=== PATIENT | female | born 1990 | race Two or more races ===

== ENCOUNTER 2020-04-20 21:49 | Inpatient (IN) | payer MEDICAID ==
[~2020-04-20] VITALS: Ht 167.6 cm; Wt 92.7 kg
[2020-04-20] MEDS ORDERED: ONDANSETRON HCL 4 MG/2 ML VIAL IV ONE (22:45)
[2020-04-20] MEDS ORDERED: MORPHINE SULFATE 4 MG/ML SYR/VIAL IV ONE (22:45)
[2020-04-20] MEDS ORDERED: SODIUM CHLORIDE 0.9% 1,000 ML IV ONE (22:45)
[2020-04-20 22:51] LABS: Basophils # (auto) 0.1 10 ^3/uL (0-0.2); Basophils % (auto) 0.5 % (0.0-2.0); Eosinophils # (auto) 0 10 ^3/uL (0-0.8); Eosinophils % (auto) 0.4 % (0.0-7.0); Hematocrit 38.4 % (36.0-46.0); Hemoglobin 13.4 g/dL (12.2-16.2); Lymphocytes # (auto) 2.1 10 ^3/uL (0.4-5.4); Lymphocytes % (auto) 15.2 % (10.0-50.0); Mean Corpuscular Hgb Conc. 34.8 g/dL (32.0-36.0); Mean Corpuscular Volume 86.3 fL (80.0-100.0); Monocytes # (auto) 0.8 10 ^3/uL (0-1.3); Monocytes % (auto) 5.5 % (0.0-12.0); Neutrophils # (auto) 10.8 10 ^3/uL (1.6-8.6); Neutrophils % (auto) 78.4 % (37.0-80.0); Nucleated Red Blood Cells % 0.1 %; Platelet Count (auto) 280 10^3/uL (140-450); Red Blood Cells 4.45 10^6/uL (4.0-5.20); Red Cell Distribution Width 12.6 % (11.8-14.3); White Blood Cell 13.8 10^3/uL (4.4-10.8)
[2020-04-20 23:20] LABS: Albumin 4.2 g/dL (3.4-5.0); Calcium 9.1 mg/dL (8.5-10.1); Potassium 3.3 mmol/L (3.5-5.1)
[2020-04-20 23:23] LABS: BUN/Creatinine Ratio 17.9; Bilirubin, Total 0.4 mg/dL (0.2-1.0); Total Protein 7.8 g/dL (6.4-8.2)
[2020-04-20 23:56] LABS: Urine Bacteria FEW /hpf (None Seen); Urine Blood 3+ /uL (Negative); Urine Mucus FEW (None Seen); Urine Specific Gravity 1.015 (1.001-1.035); Urine WBC 6 /hpf (0 - 5)
[2020-04-21] MEDS ORDERED: TEMAZEPAM 15 MG CAP PO PRN (02:00)
[2020-04-21] MEDS ORDERED: ACETAMINOPHEN 325 MG TAB PO PRN (02:00)
[2020-04-21] MEDS ORDERED: ALBUTEROL SULF 2.5 MG/0.5ML(0.5%) NEB SOLN NEB PRN (02:00)
[2020-04-21] MEDS ORDERED: SODIUM CHLORIDE 0.9% 1,000 ML IV SCH (02:00)
[2020-04-21] MEDS ORDERED: MORPHINE SULF INJ 2 MG/ML SYRINGE 1ML IV PRN (02:00)
[2020-04-21] MEDS ORDERED: IPRATROPIUM BROM 0.5 MG/2.5ML INH SOL NEB PRN (02:00)
[2020-04-21] MEDS ORDERED: DOCUSATE SOD 100 MG CAP PO PRN (02:00)
[2020-04-21] MEDS ORDERED: ONDANSETRON HCL 4 MG/2 ML VIAL IV PRN (02:00)
--- NOTE | 2020-04-21 02:48 | NUR ---
ADMISSION NOTE PT ADMITTED TO ROOM 292-A IN STABLE COND , M/S STATUS. PT ORIENTED TO ROOM AND PROCEDURES AND POC DISCUSSED WITH PT. PT VERBALIZES UNDERSTANDING. BED IS LOW, WHEELS ARE LOCKED , AND CALL LIGHT IS WITH IN REACH.
[2020-04-21] MEDS: LORazepam 0.5 MG TAB PO PRN ×3 (03:13→22:43)
[2020-04-21] MEDS ORDERED: ALPR0.5T PO (05:26)
[2020-04-21] MEDS ORDERED: OMEP20TA PO (05:26)
[2020-04-21] MEDS ORDERED: MELA3TAB27 PO (05:45)
[2020-04-21 06:00] VITALS: BP 117/59
[2020-04-21 06:19] LABS: Basophils # (auto) 0 10 ^3/uL (0-0.2); Basophils % (auto) 0.4 % (0.0-2.0); Eosinophils # (auto) 0 10 ^3/uL (0-0.8); Eosinophils % (auto) 0.3 % (0.0-7.0); Hematocrit 36.8 % (36.0-46.0); Hemoglobin 12.8 g/dL (12.2-16.2); Lymphocytes # (auto) 2.2 10 ^3/uL (0.4-5.4); Lymphocytes % (auto) 20.7 % (10.0-50.0); Mean Corpuscular Hemoglobin 30.5 pg (28.0-32.0); Mean Corpuscular Hgb Conc. 34.8 g/dL (32.0-36.0); Mean Corpuscular Volume 87.6 fL (80.0-100.0); Monocytes # (auto) 0.5 10 ^3/uL (0-1.3); Monocytes % (auto) 4.8 % (0.0-12.0); Neutrophils # (auto) 7.8 10 ^3/uL (1.6-8.6); Neutrophils % (auto) 73.8 % (37.0-80.0); Nucleated Red Blood Cells % 0.1 %; Platelet Count (auto) 266 10^3/uL (140-450); Red Cell Distribution Width 12.7 % (11.8-14.3); White Blood Cell 10.6 10^3/uL (4.4-10.8)
[2020-04-21 06:39] LABS: Calcium 8.7 mg/dL (8.5-10.1); Potassium 3.9 mmol/L (3.5-5.1)
[2020-04-21 06:43] LABS: BUN/Creatinine Ratio 16.4
[2020-04-21 09:00] VITALS: BP 110/51
--- NOTE | 2020-04-21 09:05 | NUR ---
OPENING SHIFT NOTE Assumed care of patient from assembler 1st shift RN. Patient is alert and oriented x4, no signs of distress noted, patient complaining of left sided flank pain 5/10. Patient was offered hot compress and pain medication as ordered, patient refused. She was updated on the plan of care and verbalized understanding. Bed is locked, in the lowest position, side rails up x2 and call light is in reach. Patient was encouraged to call for assistance as needed.
[2020-04-21] MEDS: levoFLOXacin 500MG 100 ML IV SCH (10:15)
--- NOTE | 2020-04-21 10:17 | NUR ---
Respiratory note: ASSESSED PT FOR PRN TX , PT WAS AWAKE AND ALERT, NO RESP DISTRESS NOTED. HR 54, RR 16, SPO2 98% ON ROOM AIR. NO INDICATION FOR TX AT THIS TIME. RN AT BEDSIDE. PT KNOWS TO HAVE RT PAGED IF TX IS NEEDED.
[2020-04-21 10:27] VITALS: BP 116/56
--- NOTE | 2020-04-21 12:40 | NUR ---
CALL FROM SUSANNA updated on the patient status. New orders received for mannitol 12.5g ivpb infused over one hour, then 1L bolus, then ns at 100ml/hr, and flomax 0.4mg po daily. Orders readback and verified. New order also received for regular diet.
[2020-04-21] MEDS ORDERED: MANNITOL FTV 25% 12.5 GM/50 ML 50 ML IV ONE (12:45)
[2020-04-21] MEDS: SODIUM CHLORIDE 0.9% 1,000 ML IV SCH (12:45)
[2020-04-21] MEDS ORDERED: SODIUM CHLORIDE 0.9% 1,000 ML IV ONE (14:00)
[2020-04-21] MEDS: HYDROcodone-ACET 5/325MG TAB PO PRN ×2 (15:58→20:46)
--- NOTE | 2020-04-21 15:59 | NUR ---
VIRI AT BEDSIDE Updated on the patient status. Plan of care was discussed with the patient and she verbalized understanding. No new orders received.
[2020-04-21 16:40] VITALS: BP 115/69
--- NOTE | 2020-04-21 17:26 | NUR ---
Urine sample sent
[2020-04-21] MEDS: TAMSULOSIN HYDROCHLORIDE 0.4 MG CAP PO SCH (17:46)
--- NOTE | 2020-04-21 19:00 | NUR ---
Opening Shift Note Assumed care of patient, awake and alert. No S/S of distress/SOB or pain. Insructed on POC and to callfor assist PRN, will continue to monitor for changes Q1hr and PRN.
[2020-04-21 20:00] VITALS: BP 117/66
[2020-04-21 22:00] VITALS: BP 117/66
[2020-04-22] MEDS: SODIUM CHLORIDE 0.9% 1,000 ML IV SCH ×4 (03:38→21:24)
[2020-04-22 06:01] LABS: Basophils # (auto) 0 10 ^3/uL (0-0.2); Basophils % (auto) 0.5 % (0.0-2.0); Eosinophils # (auto) 0.2 10 ^3/uL (0-0.8); Eosinophils % (auto) 2.8 % (0.0-7.0); Hematocrit 37.7 % (36.0-46.0); Hemoglobin 12.9 g/dL (12.2-16.2); Lymphocytes # (auto) 3.1 10 ^3/uL (0.4-5.4); Lymphocytes % (auto) 42.9 % (10.0-50.0); Mean Corpuscular Hemoglobin 30.3 pg (28.0-32.0); Mean Corpuscular Hgb Conc. 34.2 g/dL (32.0-36.0); Mean Corpuscular Volume 88.7 fL (80.0-100.0); Monocytes # (auto) 0.4 10 ^3/uL (0-1.3); Monocytes % (auto) 5.8 % (0.0-12.0); Neutrophils # (auto) 3.5 10 ^3/uL (1.6-8.6); Nucleated Red Blood Cells % 0.1 %; Platelet Count (auto) 244 10^3/uL (140-450); Red Blood Cells 4.24 10^6/uL (4.0-5.20); Red Cell Distribution Width 12.9 % (11.8-14.3); White Blood Cell 7.3 10^3/uL (4.4-10.8)
[2020-04-22 06:17] VITALS: BP 114/74
[2020-04-22 06:22] LABS: INR 1.01 (0.9-1.15)
[2020-04-22 06:24] LABS: Calcium 8.1 mg/dL (8.5-10.1); Potassium 3.9 mmol/L (3.5-5.1)
[2020-04-22 06:28] LABS: BUN/Creatinine Ratio 18.1
[2020-04-22 09:00] VITALS: BP 117/72
--- NOTE | 2020-04-22 09:27 | NUR ---
PT SPO2 98%, HEART RATE 76, RESPIRATORY RATE 16, BREATH SOUNDS ARE CLEAR T/O. PT ON ROOM AIR. NO PRN TX INDICATED. Respiratory note:
[2020-04-22] MEDS: levoFLOXacin 500MG 100 ML IV SCH (09:47)
[2020-04-22] MEDS: HYDROcodone-ACET 5/325MG TAB PO PRN ×2 (09:48→21:23)
--- NOTE | 2020-04-22 11:46 | NUR ---
EDUCATED PATIENT TO CONTINUE TO DRINK FLUIDS AND ENCOURAGED PATIENT TO AMBULATE PATIENT VERBALIZED UNDERSTANDING
[2020-04-22 13:00] VITALS: BP 140/82
[2020-04-22] MEDS: LORazepam 0.5 MG TAB PO PRN (13:23)
[2020-04-22 17:00] VITALS: BP 108/68
[2020-04-22] MEDS: TAMSULOSIN HYDROCHLORIDE 0.4 MG CAP PO SCH (18:36)
--- NOTE | 2020-04-22 19:20 | NUR ---
Respiratory note: PT ASSESSED FOR PRN MED NEB TX. HR 75, RR 16, SPO2 97% ON RA. NO S/S OF ANY RESPIRATORY DISTRESS NOTED. ADVISED PT TO CALL IF TX IS NEEDED.
--- NOTE | 2020-04-22 19:40 | NUR ---
Opening shift note Assumed care of patient from day shift RN. Patient in the bathroom at this time. Returned to find the patient A&Ox4, respirations even and non-labored with no s/s of distress at this time. Discussed POC with patient who verbalized understanding. Bed in lowest locked position with 2 side rails up, call light within reach. Will continue to monitor Q1hr and PRN
[2020-04-22 22:00] VITALS: BP 119/75
--- NOTE | 2020-04-23 01:00 | NUR ---
Patient continuing to strain urine Observed strainer and there are no visible signs of passed stones. Will continue to monitor.
[2020-04-23] MEDS: HYDROcodone-ACET 5/325MG TAB PO PRN (02:55)
[2020-04-23 05:00] VITALS: BP 106/68
[2020-04-23 06:45] LABS: Basophils # (auto) 0 10 ^3/uL (0-0.2); Basophils % (auto) 0.5 % (0.0-2.0); Eosinophils # (auto) 0.2 10 ^3/uL (0-0.8); Eosinophils % (auto) 2.6 % (0.0-7.0); Hematocrit 36.7 % (36.0-46.0); Hemoglobin 12.6 g/dL (12.2-16.2); Lymphocytes % (auto) 40.9 % (10.0-50.0); Mean Corpuscular Hemoglobin 30.4 pg (28.0-32.0); Mean Corpuscular Hgb Conc. 34.3 g/dL (32.0-36.0); Mean Corpuscular Volume 88.5 fL (80.0-100.0); Monocytes # (auto) 0.4 10 ^3/uL (0-1.3); Monocytes % (auto) 5.3 % (0.0-12.0); Neutrophils # (auto) 3.8 10 ^3/uL (1.6-8.6); Neutrophils % (auto) 50.7 % (37.0-80.0); Nucleated Red Blood Cells % 0.1 %; Platelet Count (auto) 237 10^3/uL (140-450); Red Blood Cells 4.15 10^6/uL (4.0-5.20); Red Cell Distribution Width 12.6 % (11.8-14.3); White Blood Cell 7.4 10^3/uL (4.4-10.8)
[2020-04-23 07:04] LABS: BUN/Creatinine Ratio 17.2; Calcium 8.3 mg/dL (8.5-10.1)
--- NOTE | 2020-04-23 07:39 | NUR ---
Closing shift note Patient resting without s/s of distress or labored breathing. Endorsed care to day shift RN
--- NOTE | 2020-04-23 08:00 | NUR ---
Respiratory note: PRN MED NEB TX NOT INDICATED AT THIS TIME. HR 61, RR 14, SPO2 96% ON RA, BS CLEAR. PRN MED NEB TX NOT INDICATED AT THIS TIME. PT INFORMED TO CALL IF FEELING SOB OR WHEEZING.
[2020-04-23 08:31] VITALS: BP 119/70
[2020-04-23] MEDS: SODIUM CHLORIDE 0.9% 1,000 ML IV SCH (09:13)
[2020-04-23] MEDS: levoFLOXacin 500MG 100 ML IV SCH (09:21)
[2020-04-23 12:29] VITALS: BP 111/66
[2020-04-23] MEDS ORDERED: TAM04C PO (14:02)
[2020-04-23] MEDS ORDERED: IBUP400T21 PO (14:02)
--- NOTE | 2020-04-23 16:36 | NUR ---
DISCHARGE INSTRUCTIONS GIVEN TO PT. VERBALIZED UNDERSTANDING. ALL APPROPRIATE PAPERWORK SIGNED.IV REMOVED. OFFERED TO MAKE CLINIC APPT FOR PT. PT DECLINED AT THIS TIME. PT STATED, " I WANT TO GO HOME AND REST FOR A DAY. THEN I WILL BE OKAY, AND I CAN MAKE SOME PHONE CALLS AND MAKE AN APPT. "
--- NOTE | 2020-04-23 16:57 | NUR ---
PATIENT DISCHARGED HOME.
== END 2020-04-23 17:00 | disposition home or self-care (01) | DRG 465 ==
LOC: ER 21:49 → EDBD 21:49 → OVERFLOW 21:50 → WEST WING 04-21 03:01
PROVIDERS: ADMIT Hospitalist; ATTEND Internal Medicine Nephrology
DX: N13.2 Hydronephrosis with renal and ureteral calculous obstruction (principal); E66.9 Obesity, unspecified; E87.6 Hypokalemia; J45.909 Unspecified asthma, uncomplicated; K21.9 Gastro-esophageal reflux disease without esophagitis; K44.9 Diaphragmatic hernia without obstruction or gangrene; Z80.3 Family history of malignant neoplasm of breast; Z83.3 Family history of diabetes mellitus; Z88.1 Allergy status to other antibiotic agents; Z68.26 Body mass index [BMI] 26.0-26.9, adult
CPT/HCPCS: 36415; 74176; 80048; 80053; 80061; 81001; 82150; 83690; 84443; 84702; 85025; 85610; 87086; G0378; J1956; J2405

== ENCOUNTER 2021-03-24 14:29 | Inpatient (IN) | payer BC, MEDICAID ==
[~2021-03-24] VITALS: Ht 162.6 cm; Wt 96.8 kg
[~2021-03-24 14:29] MED LIST: ALPR0.5T PO; IBUP400T22 PO; MELA3TAB27 PO; OMEP20TA PO; TAM04C PO
[2021-03-24] MEDS ORDERED: DexAMETHasone SOD PHOS 10MG/1ML VIAL INJ IV ONE ×2 (15:00→22:45)
[2021-03-24] MEDS ORDERED: ASCORBIC ACID 500 MG TAB PO ONE (15:00)
[2021-03-24] MEDS ORDERED: ZINC SULFATE 220mg CAP or TAB PO ONE (15:00)
[2021-03-24] MEDS ORDERED: AZITHROMYCIN 500MG/ 250ML 250 ML IV ONE (15:00)
[2021-03-24] MEDS ORDERED: cefTRIAXone 1GM/50ML D5W 50 ML IV ONE (15:00)
[2021-03-24 20:16] LABS: Basophils # (auto) 0.1 10 ^3/uL (0-0.2); Basophils % (auto) 0.7 % (0.0-2.0); Eosinophils # (auto) 0 10 ^3/uL (0-0.8); Hematocrit 35.8 % (36.0-46.0); Hemoglobin 12.4 g/dL (12.2-16.2); Lymphocytes # (auto) 1.1 10 ^3/uL (0.4-5.4); Lymphocytes % (auto) 13.8 % (10.0-50.0); Mean Corpuscular Hemoglobin 30.2 pg (28.0-32.0); Mean Corpuscular Hgb Conc. 34.7 g/dL (32.0-36.0); Mean Corpuscular Volume 86.9 fL (80.0-100.0); Monocytes # (auto) 0.4 10 ^3/uL (0-1.3); Monocytes % (auto) 5.5 % (0.0-12.0); Neutrophils # (auto) 6.1 10 ^3/uL (1.6-8.6); Nucleated Red Blood Cells % 0.2 %; Red Blood Cells 4.12 10^6/uL (4.0-5.20); White Blood Cell 7.6 10^3/uL (4.4-10.8)
[2021-03-24 20:37] LABS: Chloride 106 mmol/L (98-107); Potassium 3.6 mmol/L (3.5-5.1); Sodium 137 mmol/L (136-145)
[2021-03-24 20:49] LABS: Alanine Aminotransferase 67 U/L (13-56); Alkaline Phosphatase 56 U/L (45-117); Anion Gap 3 (5-15); Aspartate Aminotransferase 63 U/L (15-37); BUN/Creatinine Ratio 8.6; Bilirubin, Total 0.4 mg/dL (0.2-1.0); Blood Urea Nitrogen 6 mg/dL (7-18); Calcium 7.9 mg/dL (8.5-10.1); Carbon Dioxide 28 mmol/L (21-32); GFR African American 127 mL/min; GFR Non-African American 105 mL/min; Glucose 96 mg/dL (74-106); Total Protein 7.5 g/dL (6.4-8.2)
[2021-03-24 20:51] LABS: CRP High Sensitivity > 19.0 mg/dL (< 0.3)
[2021-03-24] MEDS ORDERED: ONDANSETRON HCL 4 MG/2 ML VIAL IV PRN (22:45)
[2021-03-24] MEDS ORDERED: MORPHINE SULFATE INJECTION 2 MG/ML SYRG IV PRN (22:45)
[2021-03-24] MEDS ORDERED: NITROGLYCERIN 0.4 MG SL TAB SL PRN (22:45)
[2021-03-24] MEDS ORDERED: ALBUTEROL SULF 2.5 MG/0.5ML(0.5%) NEB SOLN NEB PRN (22:45)
[2021-03-24] MEDS: PIPERACILLIN-TAZOB 3.375GM 100 ML IV SCH (23:44)
[2021-03-25 02:56] VITALS: BP 115/68
[2021-03-25] MEDS: PIPERACILLIN-TAZOB 3.375GM 100 ML IV SCH ×3 (06:13→18:22)
[2021-03-25 06:59] LABS: Urine Bacteria FEW /hpf (None Seen); Urine Blood 3+ /uL (Negative); Urine Mucus FEW (None Seen); Urine Specific Gravity 1.024 (1.001-1.035); Urine WBC 68 /hpf (0 - 5)
[2021-03-25] MEDS: DexAMETHasone SOD PHOS 10MG/1ML VIAL INJ IV SCH (09:40)
[2021-03-25] MEDS ORDERED: ALBUTEROL SULF HFA 90MCG INH 200DOSE IN PRN (12:45)
[2021-03-25] MEDS ORDERED: ALBUTEROL SULF HFA 90MCG INH 200DOSE IN SCH (15:00)
[2021-03-25] MEDS: ASCORBIC ACID 500 MG TAB PO SCH ×2 (15:24→22:54)
[2021-03-25] MEDS: ZINC SULFATE 220mg CAP or TAB PO SCH (15:24)
[2021-03-25] MEDS: CHOLECALCIFEROL (VITD3) 1,000UNIT=25mCg TAB PO SCH (15:25)
[2021-03-25] MEDS: ALBUTEROL SULF HFA 90MCG INH 200DOSE IN SCH ×2 (18:00→23:54)
[2021-03-25] MEDS ORDERED: IOHEXOL 350 MG/ML 100ML IJ ONE (19:30)
[2021-03-25] MEDS: MORPHINE SULFATE INJECTION 2 MG/ML SYRG IV PRN (20:08)
[2021-03-25] MEDS: DOXYCYCLINE 100 MG TAB/CAP PO SCH (22:54)
[2021-03-26 01:00] VITALS: BP 125/68
[2021-03-26] MEDS: PIPERACILLIN-TAZOB 3.375GM 100 ML IV SCH ×5 (01:48→23:46)
[2021-03-26] MEDS: ACETAMINOPHEN 500 MG TAB PO PRN ×3 (02:15→22:12)
[2021-03-26 05:00] VITALS: BP 113/57
[2021-03-26] MEDS: ALBUTEROL SULF HFA 90MCG INH 200DOSE IN SCH ×3 (06:00→19:38)
[2021-03-26 06:35] LABS: Basophils # (auto) 0 10 ^3/uL (0-0.2); Basophils % (auto) 0.2 % (0.0-2.0); Eosinophils # (auto) 0 10 ^3/uL (0-0.8); Hematocrit 35.5 % (36.0-46.0); Hemoglobin 12.6 g/dL (12.2-16.2); Lymphocytes # (auto) 0.7 10 ^3/uL (0.4-5.4); Lymphocytes % (auto) 15.3 % (10.0-50.0); Mean Corpuscular Hemoglobin 30.9 pg (28.0-32.0); Mean Corpuscular Hgb Conc. 35.4 g/dL (32.0-36.0); Mean Corpuscular Volume 87.4 fL (80.0-100.0); Monocytes # (auto) 0.6 10 ^3/uL (0-1.3); Monocytes % (auto) 12.9 % (0.0-12.0); Neutrophils # (auto) 3.5 10 ^3/uL (1.6-8.6); Neutrophils % (auto) 71.6 % (37.0-80.0); Nucleated Red Blood Cells % 0.3 %; Red Blood Cells 4.06 10^6/uL (4.0-5.20); Red Cell Distribution Width 12.8 % (11.8-14.3); White Blood Cell 4.8 10^3/uL (4.4-10.8)
[2021-03-26 06:50] LABS: Albumin 2.7 g/dL (3.4-5.0); Calcium 8.6 mg/dL (8.5-10.1); Potassium 4.1 mmol/L (3.5-5.1)
[2021-03-26 06:53] LABS: BUN/Creatinine Ratio 24.6; Bilirubin, Total 0.4 mg/dL (0.2-1.0); Total Protein 7.3 g/dL (6.4-8.2)
[2021-03-26 08:52] VITALS: BP 112/60
[2021-03-26] MEDS: DexAMETHasone SOD PHOS 10MG/1ML VIAL INJ IV SCH (09:31)
[2021-03-26] MEDS: ASCORBIC ACID 500 MG TAB PO SCH ×2 (09:32→22:12)
[2021-03-26] MEDS: ZINC SULFATE 220mg CAP or TAB PO SCH (09:32)
[2021-03-26] MEDS: DOXYCYCLINE 100 MG TAB/CAP PO SCH ×2 (09:32→22:11)
[2021-03-26] MEDS: CHOLECALCIFEROL (VITD3) 1,000UNIT=25mCg TAB PO SCH (09:32)
[2021-03-26 13:00] VITALS: BP 105/62
[2021-03-26] MEDS ORDERED: REMDESIVIR PER PHARMACY 0 ML IV SCH (15:15)
[2021-03-26] MEDS ORDERED: REMDESIVIR 200 MG in NS 210ml LOADING DOSE ADULT IV ONE (16:30)
[2021-03-26 17:00] VITALS: BP 119/68
[2021-03-26 22:00] VITALS: BP 116/65
[2021-03-27] MEDS: ALBUTEROL SULF HFA 90MCG INH 200DOSE IN SCH ×4 (00:04→18:55)
[2021-03-27 05:00] VITALS: BP 121/79
[2021-03-27] MEDS: MORPHINE SULFATE INJECTION 2 MG/ML SYRG IV PRN (06:11)
[2021-03-27] MEDS: PIPERACILLIN-TAZOB 3.375GM 100 ML IV SCH ×3 (06:11→17:14)
[2021-03-27 06:20] LABS: Basophils # (auto) 0 10 ^3/uL (0-0.2); Basophils % (auto) 0.2 % (0.0-2.0); Eosinophils # (auto) 0 10 ^3/uL (0-0.8); Hemoglobin 12.6 g/dL (12.2-16.2); Lymphocytes # (auto) 1.1 10 ^3/uL (0.4-5.4); Lymphocytes % (auto) 13.6 % (10.0-50.0); Mean Corpuscular Hemoglobin 30.5 pg (28.0-32.0); Mean Corpuscular Hgb Conc. 34.9 g/dL (32.0-36.0); Mean Corpuscular Volume 87.4 fL (80.0-100.0); Monocytes % (auto) 12.6 % (0.0-12.0); Neutrophils # (auto) 5.7 10 ^3/uL (1.6-8.6); Neutrophils % (auto) 73.6 % (37.0-80.0); Nucleated Red Blood Cells % 0.1 %; Red Blood Cells 4.12 10^6/uL (4.0-5.20); Red Cell Distribution Width 12.7 % (11.8-14.3); White Blood Cell 7.8 10^3/uL (4.4-10.8)
[2021-03-27 06:36] LABS: Potassium 3.9 mmol/L (3.5-5.1)
[2021-03-27 06:47] LABS: Albumin 2.6 g/dL (3.4-5.0); BUN/Creatinine Ratio 29.2; Bilirubin, Total 0.4 mg/dL (0.2-1.0); Calcium 8.4 mg/dL (8.5-10.1); Total Protein 6.8 g/dL (6.4-8.2)
[2021-03-27 09:00] VITALS: BP 119/60
[2021-03-27] MEDS: DexAMETHasone SOD PHOS 10MG/1ML VIAL INJ IV SCH (11:30)
[2021-03-27] MEDS: ZINC SULFATE 220mg CAP or TAB PO SCH (11:31)
[2021-03-27] MEDS: DOXYCYCLINE 100 MG TAB/CAP PO SCH ×2 (11:31→21:18)
[2021-03-27] MEDS: ASCORBIC ACID 500 MG TAB PO SCH ×2 (11:31→21:18)
[2021-03-27] MEDS: CHOLECALCIFEROL (VITD3) 1,000UNIT=25mCg TAB PO SCH (11:31)
[2021-03-27 13:00] VITALS: BP 122/71
[2021-03-27] MEDS: REMDESIVIR 100mg 100 MG in SODIUM CHL 0.9% 230 ML IV SCH (15:41)
[2021-03-27 17:00] VITALS: BP 127/70
[2021-03-27 22:00] VITALS: BP 106/68
[2021-03-28] MEDS: ALBUTEROL SULF HFA 90MCG INH 200DOSE IN SCH ×3 (00:07→12:47)
[2021-03-28] MEDS: PIPERACILLIN-TAZOB 3.375GM 100 ML IV SCH ×3 (00:08→10:41)
[2021-03-28 05:00] VITALS: BP 105/61
[2021-03-28 08:08] LABS: Albumin 2.8 g/dL (3.4-5.0); Calcium 8.2 mg/dL (8.5-10.1); Potassium 4.1 mmol/L (3.5-5.1)
[2021-03-28 08:14] LABS: BUN/Creatinine Ratio 28.8; Bilirubin, Total 0.5 mg/dL (0.2-1.0); Total Protein 6.8 g/dL (6.4-8.2)
[2021-03-28 09:00] VITALS: BP 120/67
[2021-03-28] MEDS: ZINC SULFATE 220mg CAP or TAB PO SCH (10:41)
[2021-03-28] MEDS: DOXYCYCLINE 100 MG TAB/CAP PO SCH (10:42)
[2021-03-28] MEDS: DexAMETHasone SOD PHOS 10MG/1ML VIAL INJ IV SCH (10:42)
[2021-03-28] MEDS: CHOLECALCIFEROL (VITD3) 1,000UNIT=25mCg TAB PO SCH (10:42)
[2021-03-28] MEDS: ASCORBIC ACID 500 MG TAB PO SCH (10:42)
[2021-03-28] MEDS ORDERED: CHOL1TAB30 PO (12:58)
[2021-03-28] MEDS ORDERED: ALBUAER3 IN (12:58)
[2021-03-28] MEDS ORDERED: ASCO500T11 PO (12:58)
[2021-03-28] MEDS ORDERED: DOX100T PO (12:58)
[2021-03-28] MEDS ORDERED: DEXA6TAB6 PO (12:58)
[2021-03-28] MEDS ORDERED: ZINC220C8 PO (12:58)
[2021-03-28 13:00] VITALS: BP 112/63
[2021-03-28] MEDS ORDERED: ALPRAZolam 0.5 MG TAB PO PRN (13:00)
[2021-03-28] MEDS: REMDESIVIR 100mg 100 MG in SODIUM CHL 0.9% 230 ML IV SCH (14:56)
[2021-03-28] MEDS ORDERED: TAMSULOSIN HYDROCHLORIDE 0.4 MG CAP PO SCH (18:00)
== END 2021-03-28 18:06 | disposition home or self-care (01) | DRG 177 ==
LOC: EDBD 14:29 → ER 14:29 → TELE 22:36 → TELE-EAST 03-25 23:29
PROVIDERS: ADMIT Internal Medicine; ATTEND Internal Medicine
PROC: XW033E5 Introduction of Remdesivir Anti-infective into Peripheral Vein, Percutaneous Approach, New Technology Group 5 (ICD-10-PCS; principal; 2021-03-26)
DX: U07.1 COVID-19 (principal); J96.01 Acute respiratory failure with hypoxia; J12.82 Pneumonia due to coronavirus disease 2019; J98.11 Atelectasis; J45.901 Unspecified asthma with (acute) exacerbation; K21.9 Gastro-esophageal reflux disease without esophagitis; R79.89 Other specified abnormal findings of blood chemistry; E66.01 Morbid (severe) obesity due to excess calories; Z80.3 Family history of malignant neoplasm of breast; Z83.3 Family history of diabetes mellitus; Z87.442 Personal history of urinary calculi; Z68.36 Body mass index [BMI] 36.0-36.9, adult
CPT/HCPCS: 36415; 36600; 71045; 71275; 80053; 81001; 81025; 82728; 82805; 83605; 84484; 84702; 85025; 85379; 86141; 87426; 93005; 93306; 93970; 93971; 94640; 96365; 96367; 96375; 99291; G0378; J0696; J1100; J2405; J2543